=== PATIENT | male | born 1960 | race Caucasian/White ===

== ENCOUNTER → 2022-03-23 14:31 | Outpatient (CLI) | payer SELFPAY | PROVIDERS: Referring Provider Internal Medicine; Visit Provider Internal Medicine | DX: Z23 Encounter for immunization (principal) | CPT/HCPCS: 90471; 90686 ==

== ENCOUNTER 2023-03-05 09:29 | Day surgery (SDC) | payer OTHER, SELFPAY ==
[2023-03-05 10:41] VITALS: BMI 25.1
[2023-03-05] MEDS: LACTATED RINGERS 1,000 ML 150 ML IV (10:46)
[2023-03-05 10:50] VITALS: BP 124/79; PULSE 82; RESP 16; TEMP 36.3; O2SAT 97
--- NOTE | 2023-03-05 11:26 | PM.HP.1 ---
History of Present Illness History of Present Illness Date Patient Seen: 03/05/23 Time Patient Seen: 11:27 Chief complaint: Colonoscopy Narrative: colon cancer screening. this is his 4th colonoscopy. He has had work done on him hemarrhoids. [facility] Medical History Arthritis Asthma Social History household members: spouse Smoking Status: Never smoker alcohol intake: current Meds Home Medications and Allergies Home Medications Medication Instructions Recorded Confirmed Type bupropion HCl 75 mg tablet 150 mg PO DAILY 03/05/23 03/05/23 History finasteride 5 mg tablet 5 mg PO DAILY 03/05/23 03/05/23 History Allergies Allergy/AdvReac Type Severity Reaction Status Date / Time No Known Drug Allergies Allergy Verified 03/05/23 10:39 Review of Systems Review of Systems ROS: Yes All systems reviewed with the patient and are negative except as otherwise documented Exam Vital Signs (past 8 hours): - 03/05/23 10:50 Temperature 97.4 F L Pulse Rate 82 Respiratory Rate 16 Blood Pressure 124/79 Pulse Oximetry 97 Oxygen Delivery Method Room Air Oxygen Delivery Method Room Air Const General: healthy appearing and comfortable Nutritional Appearance: average body habitus HENMT Head: normocephalic and atraumatic Eyes Sclera: sclerae normal Neck Neck: trachea midline Resp Effort & Inspection: normal respiratory effort and able to speak in complete sentences Cardio Rate: regular rate Rhythm: regular rhythm GI Palpation: soft Skin General: elasticity normal and turgor normal Neuro General: patient alert, patient awake and patient oriented x3 Cognition: normal cognition Psych Appearance: grossly normal Judgment: judgment good Assessment & Plan Assessment & Plan narrative: Colon cancer screening using colonoscopy under anesthesia Time Spent With Patient Time with patient: less than 30 minutes
--- NOTE | 2023-03-05 11:55 | P.OP.COLON_ITS ---
Operative Date/Time/Diagnoses Date of procedure: 03/05/23 Time of procedure: 11:55 Pre-op diagnosis: Colon cancer screening Post-op diagnosis: same Procedure & Clinicians Study performed: Colonoscopy with anesthesia Same procedure as scheduled: Yes Indications: Colon cancer screening Surgeon: Delmi Moran Procedure Notes Procedure in detail: Preop diagnosis: Colon cancer screening Postop diagnosis: Same Operative procedure: Colonoscopy with anesthesia Surgeon: Mackenzie Moran MD Findings: Normal colonoscopy. No diverticulosis, no polyps. Grade 2 internal hemorrhoids Procedure: Patient placed in lateral position. Rectal exam performed showing normal tone no masses. Colonoscope was inserted into the rectum and advanced to ileocecal valve with minimal difficulty. Insufflation extraction of the scope and the above findings. Retroflex was performed in the rectum Impression: Normal colonoscopy. Inactive grade 2 internal hemorrhoids Plan: Repeat colonoscopy in 10 years unless otherwise indicated by change in c linical condition Findings: internal hemorrhoids Specimen(s): none sent Complications: none Impression: No polyps, no significant diverticulosis, grade 2 internal hemorrhoids that are inactive Post-procedure Recommendations: Colonoscopy in 10 years Follow up: as needed Disposition: PACU
[2023-03-05 11:59] VITALS: BP 96/63; PULSE 74; RESP 19; TEMP 36.2; O2SAT 96
[2023-03-05 12:04] VITALS: BP 110/69; PULSE 68; RESP 15; O2SAT 95
[2023-03-05 12:09] VITALS: BP 119/70; PULSE 76; RESP 16; TEMP 36.3; O2SAT 96
[2023-03-05 12:10] VITALS: BP 105/72; PULSE 79; RESP 12; O2SAT 96
== END 2023-03-05 12:29 | disposition home or self-care (01) ==
PROVIDERS: PCP Family Medicine; Referring Provider Surgery; Visit Provider Anesthesiology
PROC: 0DJD8ZZ Inspection of Lower Intestinal Tract, Via Natural or Artificial Opening Endoscopic (ICD-10-PCS; CPT 45378; principal; 2023-03-05 10:45)
DX: Z12.11 Encounter for screening for malignant neoplasm of colon (principal); K64.1 Second degree hemorrhoids
CPT/HCPCS: 45378; J2250; J3010